=== PATIENT | female | born 1970 | race African-American/Black ===

== ENCOUNTER 2020-05-19 07:54 | Emergency (ER) | payer BC, OTHER ==
[2020-05-19] MEDS ORDERED: DIAZEPAM 10 MG/2 ML INJ SYRINGE ONE (09:16)
[2020-05-19] MEDS ORDERED: MORPHINE 4 MG/ML SYR ONE (09:16)
[2020-05-19] MEDS ORDERED: ONDANSETRON 4 MG (ODT) TAB ONE (09:17)
--- NOTE | 2020-05-19 09:40 | RAD REPORT ---
EXAM DESCRIPTION: CT - Spine Lumbar Wo Con - 05/19/2020 9:19 am CLINICAL HISTORY: back pain COMPARISON: CT lumbar spine study November 2017 TECHNIQUE: Thin section axial imaging of the lumbar spine was performed. Sagittal and coronal recon struction images were generated and reviewed. All CT scans are performed using dose optimization technique as appropriate and may include automated exposure control or mA/KV adjustment according to patient size. FINDINGS: The T12 - S2 vertebrae are normal in height and alignment. No fracture or acute vertebral body finding. The S3-coccygeal segments are not within the field of view of this CT lumbar spine stud y. The imaged portions of the sacral ala show no fracture or acute findings. No acute SI joint abnorm ality. No paraspinal soft tissue mass or hematoma. Central canal detail is inherently limited on CT imaging. The central canal is fairly well visualized with no herniation or significant disc bulge identifiable. Patient probably has mild broad-based dis c bulge at L5-S1. This is not significantly different from the prior study. No displacement or flatte joselyn of the thecal sac or S1 nerve roots. Mild facet joint degenerative changes are present. No pars interarticularis defects. IMPRESSION: No fracture or acute vertebral finding from T12-S2 levels. Mild facet joint degenerative change. No evidence for disc herniation or significant disc bulge.
--- NOTE | 2020-05-19 10:10 | EDPHYS ---
Physician Documentation [facility] Name: Lucina Zuñiga Age: 49 yrs Sex: Female : 1970 Arrival Date: 05/19/2020 Time: 08:03 Bed 15 Private MD: Soren Walters R ED Physician Peggy Monreal HPI: 05/19 08:54 This 49 yrs old Black Female presents to ER via Ambulatory with complaints of Back Pain.ma2 08:54 The patient presents with pain and decreased range of motion. The symptoms are located ma2 in the low back. Onset: The symptoms/episode began/occurred gradually, 1 week(s) ago. Associated signs and symptoms: Pertinent negatives: constipation, hematuria, nausea, numbness. The problem was sustained when lifting boxes. Severity of symptoms: At their worst the symptoms were mild, in the emergency department the symptoms are unchanged. The patient has experienced similar episodes in the past. Historical: - Allergies: 08:12 No Known Allergies; ss - PMHx: 08:12 Arthritis; ss - PSHx: 08:12 ; Hysterectomy; right knee mensicus removal; ss - Immunization history:: Adult Immunizations up to date. - Social history:: Smoking status: Patient denies any tobacco usage or history of. - Family history:: not pertinent. ROS: 08:54 Constitutional: Negative for fever, chills, and weight loss. ma2 08:54 All other systems are negative. Exam: 08:54 Constitutional: This is a well developed, well nourished patient who is awake, alert, ma2 and in no acute distress. Chest/axilla: Normal chest wall appearance and motion. Nontender with no deformity. No lesions are appreciated. Cardiovascular: Regular rate and rhythm with a normal S1 and S2. No gallops, murmurs, or rubs. Normal PMI, no JVD. No pulse deficits. Respiratory: Lungs have equal breath sounds bilaterally, clear to auscultation and percussion. No rales, rhonchi or wheezes noted. No increased work of breathing, no retractions or nasal flaring. Abdomen/GI: Soft, non-tender, with normal bowel sounds. No distension or tympany. No guarding or rebound. No evidence of tenderness throughout. Back: No spinal tenderness. No costovertebral tenderness. Full range of motion. Skin: Warm, dry with normal turgor. Normal color with no rashes, no lesions, and no evidence of cellulitis. MS/ Extremity: Pulses equal, no cyanosis. Neurovascular intact. Full, normal range of motion. Neuro: Awake and alert, GCS 15, oriented to person, place, time, and situation. Cranial nerves II-XII grossly intact. Motor strength 5/5 in all extremities. Sensory grossly intact. Cerebellar exam normal. Normal gait. Vital Signs: 08:12 BP 126 / 77; Pulse 81; Resp 16; Temp 98.9(TE); Pulse Ox 100% on R/A; Weight 70.31 kg; ss Height 5 ft. 4 in. (162.56 cm); Pain 8/10; 08:12 Body Mass Index 26.61 (70.31 kg, 162.56 cm) ss MDM: 08:42 Patient medically screened. [facility] 08:54 Differential diagnosis: Fracture Scoliosis sprain, vertebral fracture. [facility] 10:10 Data reviewed: vital signs, nurses notes. Counseling: I had a detailed discussion with ma2 the patient and/or guardian regarding: the historical points, exam findings, and any diagnostic results supporting the discharge/admit diagnosis, the presence of at least one elevated blood pressure reading (>120/80) during this emergency department visit, the need for outpatient follow up. Response to treatment: the patient's symptoms have markedly improved after treatment. 05/19 08:53 Order name: CT Lumbar Spine Wo Con; Complete Time: 10:09 [facility] Administered Medications: 09:08 Drug: Ondansetron (Zofran) 4 mg Route: PO; em 10:29 Follow up: Response: No adverse reaction em 09:11 Drug: morphine 4 mg Route: IM; Site: left gluteus; em 10:29 Follow up: Response: No adverse reaction; Marked relief of symptoms; RASS: Alert and em Calm (0) 09:13 Drug: Valium 10 mg Route: IM; Site: right gluteus; em 10:29 Follow up: Response: No adverse reaction; Marked relief of symptoms; Pain is decreased em Disposition: 05/19/20 10:10 Discharged to Home. Impression: Low back pain. - Condition is Stable. - Discharge Instructions: Back Pain, Adult. - Prescriptions for Valium 5 mg Oral Tablet - take 1 tablet by ORAL route every 8 hours As needed; 20 tablet. Cyclobenzaprine 10 mg Oral Tablet - take 1 tablet by ORAL route every 8 hours As needed; 30 tablet. Diclofenac Sodium 75 mg Oral Tablet Sustained Release - take 1 tablet by ORAL route 2 times per day; 30 tablet. - Medication Reconciliation Form, Thank You Letter, Antibiotic Education, Prescription Opioid Use form. - Follow up: Private Physician; When: Tomorrow; Reason: Continuance of care. Signatures: Dispatcher [employer] Giorgi Brar RN RN Mireille Medeiros RN RN Peggy Monreal MD MD ma2 Corrections: (The following items were deleted from the chart) 10:44 10:10 05/19/2020 10:10 Discharged to Home. Impression: Low back pain. Condition is em Stable. Prescriptions for Valium 5 mg Oral Tablet - take 1 tablet by ORAL route every 8 hours As needed; 20 tablet, Cyclobenzaprine 10 mg Oral Tablet - take 1 tablet by ORAL route every 8 hours As needed; 30 tablet, Diclofenac Sodium 75 mg Oral Tablet Sustained Release - take 1 tablet by ORAL route 2 times per day; 30 tablet. and Forms are Medication Reconciliation Form, Thank You Letter, Antibiotic Education, Prescription Opioid Use. Follow up: Private Physician; When: Tomorrow; Reason: Continuance of care. ma2
--- NOTE | 2020-05-19 10:10 | ER ---
Nurse's Notes [facility] Name: Lucina Zuñiga Age: 49 yrs Sex: Female : 1970 Arrival Date: 05/19/2020 Time: 08:03 Bed 15 Private MD: Soren Walters R Diagnosis: Low back pain Presentation: 05/19 08:10 Chief complaint: Patient states: I lifted a basket 2 weeks ago, but I fell backwards ss over a blow up mattress Thursday, and my back hurts so much worse. Pt c/o low back pain that radiates around to bilateral flank area. Coronavirus screen: Client denies travel out of the [place] in the last 14 days. Ebola Screen: Patient denies exposure to infectious person. Patient denies travel to an Ebola-affected area in the 21 days before illness onset. Initial Sepsis Screen: Does the patient meet any 2 criteria? No. Patient's initial sepsis screen is negative. Does the patient have a suspected source of infection? No. Patient's initial sepsis screen is negative. Risk Assessment: Do you want to hurt yourself or someone else? Patient reports no desire to harm self or others. Onset of symptoms was May 05, 2020. 08:10 Method Of Arrival: Ambulatory ss 08:10 Method Of Arrival: Ambulatory ss 08:10 Acuity: ABEL 3 ss Historical: - Allergies: 08:12 No Known Allergies; ss - PMHx: 08:12 Arthritis; ss - PSHx: 08:12 ; Hysterectomy; right knee mensicus removal; ss - Immunization history:: Adult Immunizations up to date. - Social history:: Smoking status: Patient denies any tobacco usage or history of. - Family history:: not pertinent. Screenin:10 Abuse screen: Denies threats or abuse. Nutritional screening: No deficits noted. em Tuberculosis screening: No symptoms or risk factors identified. Fall Risk None identified. Assessment: 09:00 General: Appears in no apparent distress. uncomfortable, Behavior is calm, cooperative. em Pain: Complains of pain in left low back and right low back Pain currently is 8 out of 10 on a pain scale. Quality of pain is described as radiating. Neuro: Level of Consciousness is awake, alert, obeys commands, Oriented to person, place, time, situation, Appropriate for age. Cardiovascular: Capillary refill < 3 seconds Patient's skin is warm and dry. Respiratory: Airway is patent Respiratory effort is even, unlabored, Respiratory pattern is regular, symmetrical. GI: Patient currently denies nausea, vomiting. Derm: Skin is intact, is healthy with good turgor, Skin is pink, warm \T\ dry. Musculoskeletal: Capillary refill < 3 seconds, Range of motion: intact in all extremities. 10:12 Reassessment: Patient appears in no apparent distress at this time. Patient and/or em family updated on plan of care and expected duration. Pain level reassessed. Patient is alert, oriented x 3, equal unlabored respirations, skin warm/dry/pink. Patient states feeling better. Patient states symptoms have improved. Vital Signs: 08:12 BP 126 / 77; Pulse 81; Resp 16; Temp 98.9(TE); Pulse Ox 100% on R/A; Weight 70.31 kg; ss Height 5 ft. 4 in. (162.56 cm); Pain 8/10; 08:12 Body Mass Index 26.61 (70.31 kg, 162.56 cm) ED Course: 08:03 Patient arrived in ED. mr 08:04 Soren Walters MD is Private Physician. mr 08:12 Triage completed. ss 08:12 Arm band placed on right wrist. ss 08:41 Peggy Monreal MD is Attending Physician. ma2 09:00 Patient has correct armband on for positive identification. Adult w/ patient. em 09:01 Giorgi Obrien, RN is Primary Nurse. em 09:19 CT Lumbar Spine Wo Con In Process Unspecified. EDMS 09:20 CT completed. Patient tolerated procedure well. Patient moved back from CT. bq 10:29 No provider procedures requiring assistance completed. Patient did not have IV access em during this emergency room visit. Administered Medications: 09:08 Drug: Ondansetron (Zofran) 4 mg Route: PO; em 10:29 Follow up: Response: No adverse reaction em 09:11 Drug: morphine 4 mg Route: IM; Site: left gluteus; em 10:29 Follow up: Response: No adverse reaction; Marked relief of symptoms; RASS: Alert and em Calm (0) 09:13 Drug: Valium 10 mg Route: IM; Site: right gluteus; em 10:29 Follow up: Response: No adverse reaction; Marked relief of symptoms; Pain is decreased em Outcome: 10:10 Discharge ordered by MD. ruiz 10:44 Patient left the ED. em Signatures: Dispatcher [employer] Ember Marie mr JjBrielle Edgar, RN RN em Smirch, Shelby, RN RN ss Alzahri, Mohammad, MD MD ma2
[2020-05-22 22:31] VITALS: BP 126/77; TEMP 98.9; O2SAT 100
== END 2020-05-19 10:44 | disposition home or self-care (01) ==
LOC: ER 07:54
DX: M54.5 Low back pain (principal)
CPT/HCPCS: 72131; 96372; 99284; J3360

== ENCOUNTER 2021-04-29 07:24 | Emergency (ER) | payer BC ==
--- OUTSIDE RECORDS SUMMARY | 2021-04-29 07:27 | XMS REPORT | Continuity of Care Document ---
:1970 Author Organization [facility] t Address [address] [place] [address] Care Team Providers Name Role Phone Martinez DO Attending Clinician Problems This patient has no known problems. Allergies, Adverse Reactions, Alerts This patient has no known allergies or adverse reactions. Medications This patient has no known medications. Procedures This patient has no known procedures. Encounters Start End Encounter Admission Attending Care Care Encounter Source Date/Time Date/Time Type Type Clinicians Facility Department ID 2020-10-26 2020-10-26 [facility] [id number] 09:40:00 12:30:00 Scar Fischer [id number] [place] [id number] [place] [id number] 2020-10-13 2020-10-13 [facility] [id number] 09:01:00 09:29:00 Scar Fischer [id number] [place] [id number] [place] [id number] Results This patient has no known results.
--- NOTE | 2021-04-29 08:39 | RAD REPORT ---
EXAM DESCRIPTION: CT - Abdomen Pelvis Wo Contrast - 04/29/2021 8:16 am CLINICAL HISTORY: Abdominal pain COMPARISON: 2012 TECHNIQUE: Computed axial tomography of the abdomen and pelvis was obtained. IV and oral contrast we re not requested. All CT scans are performed using dose optimization technique as appropriate and may include automated exposure control or mA/KV adjustment according to patient size. FINDINGS: The evaluation of solid organs, vessels and bowel is limited secondary to the lack of con trast administration. The most superior slice demonstrates a 9 millimeter ground-glass opacity within the right lower lobe. The liver, spleen, pancreas, adrenals and kidneys appear grossly normal. The appendix is normal. There is no evidence of diverticulitis. Mild rectal wall thickening. Apparent mild thickening of the wall of the transverse colon Hysterectomy. Small umbilical hernia contains fat IMPRESSION: Mild rectal wall thickening may be secondary to incomplete distention, small mass or inf lammation Apparent mild thickening of the wall of the transverse colon may simply represent incomplete distenti on. A mild colitis can also result in this appearance Mild right lower lobe alveolitis .
--- NOTE | 2021-04-29 08:44 | RAD REPORT ---
EXAM DESCRIPTION: Connie Single View04/29/2021 8:22 am CLINICAL HISTORY: Abdominal pain COMPARISON: 2009 FINDINGS: The lungs appear clear of acute infiltrate. The heart is normal size IMPRESSION: No acute abnormalities displayed
[2021-04-29 08:57] LABS: Urine Blood 1+ (Negative); Urine Glucose Negative (Negative); Urine Protein 2+ (Negative); Urine pH 8.5 (5.0-7.0)
[2021-04-29] MEDS ORDERED: ONDANSETRON 4 MG/2 ML VIAL ONE (09:08)
[2021-04-29] MEDS ORDERED: NA CHLORIDE 0.9% 1,000 ML ONE (09:09)
[2021-04-29 09:11] LABS: Basophils % 0.3 % (0-1.3); Hematocrit 40.9 % (36.0-45.0); MPV 9.1 fL (7.6-11.3); RBC Red Blood Cell Count 5.24 M/uL (3.86-4.86)
[2021-04-29 09:48] LABS: Urine Bacteria 20-50 /HPF (<20); Urine RBC <5 /HPF (NONE SEEN)
--- NOTE | 2021-04-29 11:06 | EDPHYS ---
Physician Documentation [facility] Name: Lucina Zuñiga Age: 50 yrs Sex: Female : 1970 Arrival Date: 04/29/2021 Time: 07:27 Bed 19 Private MD: ED Physician Clayton Izquierdo HPI: 04/29 07:56 This 50 yrs old Black Female presents to ER via Unassigned with complaints of Nausea, rn diarrhea. 07:56 The patient presents to the emergency department with nausea, vomiting, diarrhea. rn Onset: The symptoms/episode began/occurred yesterday. Possible causes: unknown. The symptoms are aggravated by nothing. The symptoms are alleviated by nothing. Associated signs and symptoms: Pertinent positives: diarrhea, nausea, vomiting, Pertinent negatives: fever. Severity of symptoms: At their worst the symptoms were moderate in the emergency department the symptoms are unchanged. The patient has not experienced similar symptoms in the past. The patient has been recently seen by a physician:. Patient states seen in outside ER yesterday, reports seen for urine infection symptoms yesterday, sent home with Keflex and Pyridium. Last night began with vomiting and diarrhea. Denies abdominal pain. Denies fever. Does report runny nose and dry cough.. Historical: - Allergies: 08:14 No Known Allergies; iw - PMHx: 08:14 Arthritis; iw - Immunization history:: Client reports having NOT received the Covid vaccine. - Family history:: not pertinent. - Social history:: Smoking status: unknown. - Hospitalizations: : No recent hospitalization is reported. ROS: 07:56 Constitutional: Negative for fever, chills, and weight loss, Eyes: Negative for injury, rn pain, redness, and discharge, Neck: Negative for injury, pain, and swelling, Cardiovascular: Negative for chest pain, palpitations, and edema, Respiratory: Negative for shortness of breath, wheezing, and pleuritic chest pain, Abdomen/GI: Negative for abdominal pain, and constipation, Back: Negative for injury and pain, : Negative for injury, bleeding, discharge, and swelling, MS/Extremity: Negative for injury and deformity, Skin: Negative for injury, rash, and discoloration, Neuro: Negative for headache, numbness, tingling, and seizure. 07:56 All other systems are negative. Exam: 07:56 Constitutional: This is a well developed, well nourished patient who is awake, alert, rn and in no acute distress. Ambulatory to room without assistance or difficulty. Head/Face: Normocephalic, atraumatic. Eyes: Periorbital areas with no swelling, redness, or edema. ENT: Dry mucous membranes, no stridor Cardiovascular: Regular rate and rhythm. No pulse deficits. Respiratory: Mild tachypnea, speaks full sentences, no retractions Abdomen/GI: Soft, non-tender Back: No spinal tenderness. No costovertebral tenderness. Full range of motion. Skin: Warm, dry MS/ Extremity: Pulses equal, no cyanosis. Neurovascular intact. Full, normal range of motion. Equal circumference. Neuro: Awake and alert, GCS 15, oriented to person, place, time, and situation. Cranial nerves II-XII grossly intact. Motor strength 5/5 in all extremities. Sensory grossly intact. Cerebellar exam normal. Normal gait. 09:14 ECG was reviewed by the Attending Physician. rn Vital Signs: 08:04 BP 106 / 58; Pulse 66; Resp 22 S; Temp 98.6; Pulse Ox 99% on R/A; iw 10:02 BP 125 / 85; Pulse 65; Resp 22; Pulse Ox 100% ; vg1 11:00 BP 115 / 72; Pulse 62; Resp 20; Pulse Ox 100% ; vg1 MDM: 07:28 Patient medically screened. rn 08:33 Differential diagnosis: Nonspecific abd pain, gastritis, pancreatitis, appendicitis, rn diverticulitis, viral gastroenteritis, gastroenteritis, UTI, pyelonephritis, secondary viral infection, COVID. Data interpreted: environmental monitoring specialist: rate is 68 beats/min, rhythm is normal sinus rhythm, regular, with no ectopy, Interpretation: normal rate, normal rhythm, Pulse oximetry: on room air is 99 %. Interpretation: normal. 11:05 Data reviewed: vital signs, nurses notes, lab test result(s), EKG, radiologic studies, rn CT scan, plain films, and as a result, I will discharge patient. Test interpretation: by ED physician or midlevel provider: ECG, plain radiologic studies, X-ray without acute infiltrate or pneumonia.. Counseling: I had a detailed discussion with the patient and/or guardian regarding: the historical points, exam findings, and any diagnostic results supporting the discharge/admit diagnosis, lab results, radiology results, the need for outpatient follow up, to return to the emergency department if symptoms worsen or persist or if there are any questions or concerns that arise at home. Response to treatment: the patient's symptoms have mildly improved after treatment, and as a result, I will discharge patient. Special discussion: I discussed with the patient/guardian in detail that at this point there is no indication for admission to the hospital. It is understood, however, that if the symptoms persist or worsen the patient needs to return immediately for re-evaluation. ED course: Patient with both Covid and urine infection. Rocephin given here IV. Already on Keflex. In terms of Covid infection chest x-ray is negative and no oxygen requirement. Will DC home with PCP follow-up and return precautions.. 04/29 07:56 Order name: Basic Metabolic Panel rn 04/29 07:56 Order name: CBC with Diff rn 04/29 07:56 Order name: Hepatic Function rn 04/29 07:56 Order name: Lipase rn 04/29 07:56 Order name: Urine Culture rn 04/29 07:56 Order name: Urine Microscopic Only; Complete Time: 10:11 rn 04/29 07:56 Order name: Flu; Complete Time: 09:11 rn 04/29 07:56 Order name: Blood Culture Adult (2) rn 04/29 07:56 Order name: Procalcitonin; Complete Time: 11:04 04/29 07:56 Order name: Basic Metabolic Panel EDNJ 04/29 07:56 Order name: CBC with Automated Diff; Complete Time: 09:39 EDNJ 04/29 07:56 Order name: Liver (Hepatic) Function EDNJ 04/29 08:57 Order name: Urine Dipstick-Ancillary; Complete Time: 09:11 EDNJ 04/29 07:56 Order name: IV Saline Lock; Complete Time: 09:00 rn 04/29 07:56 Order name: Labs collected and sent; Complete Time: 09:00 rn 04/29 07:56 Order name: Urine Dipstick-Ancillary (obtain specimen); Complete Time: 08:59 rn 04/29 07:56 Order name: XRAY Chest (1 view); Complete Time: 08:46 rn 04/29 08:00 Order name: CT Abd/Pelvis - Without Contrast; Complete Time: 08:40 rn 04/29 08:40 Interpretation: No acute disease except: Nonspecific large intestine findings. rn 04/29 08:25 Order name: Cardiac monitoring; Complete Time: 09:01 rn 04/29 08:25 Order name: O2 Sat Monitoring; Complete Time: 09: rn 04/29 08:25 Order name: EKG; Complete Time: 08:26 rn 04/29 08:25 Order name: EKG - Nurse/Tech; Complete Time: 09:01 rn 04/29 09:06 Order name: Urine --Ancillary (enter results) bd 04/29 09:53 Order name: SARS-COV-2 RT PCR; Complete Time: 10:11 EDMS EC:14 Rate is 63 beats/min. Rhythm is regular. QRS [place] is Normal. MA interval is normal. QRS rn interval is normal. QT interval is normal. No Q waves. T waves are Normal. No ST changes noted. Clinical impression: Normal ECG. Interpreted by me. Reviewed by me. Administered Medications: 08:50 Drug: Zofran (Ondansetron) 4 mg Route: IVP; Site: left antecubital; iw 11:04 Follow up: Response: No adverse reaction vg1 09:55 Drug: NS 0.9% 1000 ml Route: IV; Rate: 1000 ml; Site: left jugular; vg1 11:04 Follow up: Response: No adverse reaction; IV Status: Completed infusion; IV Intake: vg1 1000ml 09:55 Drug: NS 0.9% 500 ml Route: IV; Rate: bolus; Site: left jugular; vg1 10:56 Follow up: IV Status: Completed infusion; IV Intake: 500ml vg1 10:56 Drug: Rocephin (cefTRIAXone) 1 grams Route: IV; Rate: calculated rate; Site: left vg1 jugular; 11:44 Follow up: IV Status: Completed infusion; IV Intake: 10ml vg1 Disposition Summary: 04/29/21 11:06 Discharge Ordered Location: Home rn Problem: new rn Symptoms: have improved rn Condition: Stable rn Diagnosis - SARS-associated coronavirus as the cause of diseases classified elsewhere rn - UTI/ Urinary tract infection, site not specified rn Followup: rn - With: Private Physician - When: As needed - Reason: Recheck today's complaints, Re-evaluation by your physician Discharge Instructions: - Discharge Summary Sheet rn - Urinary Tract Infection, Adult rn - COVID-19 rn - Things to Know about the COVID-19 Pandemic - [facility] rn - 10 Things You Can Do to Manage Your COVID-19 Symptoms at Home - CDC rn Forms: - Medication Reconciliation Form rn - Thank You Letter rn - Antibiotic journeyman glazier - Prescription Opioid Use rn Prescriptions: - ondansetron 4 mg Oral tablet,disintegrating - take 1 tablet by ORAL route every 8 hours As needed; 20 tablet; Refills: 0, rn Product Selection Permitted Signatures: Dispatcher [employer] Coretta Velázquez RN RN iw Nieto, Roman, MD MD rn Garcia, Victoria RN RN vg1 Corrections: (The following items were deleted from the chart) 08:27 07:56 CORONAVIRUS+MR.LAB.BRZ ordered. EDNJ EDMS
--- NOTE | 2021-04-29 11:06 | ER ---
Nurse's Notes [facility] Name: Lucina Zuñiga Age: 50 yrs Sex: Female : 1970 Arrival Date: 04/29/2021 Time: 07:27 Bed 19 Private MD: Diagnosis: SARS-associated coronavirus as the cause of diseases classified elsewhere;UTI/ Urinary tract infection, site not specified Presentation: 04/29 08:04 Chief complaint: Patient states: nausea, vomiting, diarrhea, SOB, no fever. Coronavirus iw screen: Client presents with at least one sign or symptom that may indicate coronavirus-19. Ebola Screen: Patient negative for fever greater than or equal to 101.5 degrees Fahrenheit, and additional compatible Ebola Virus Disease symptoms Patient denies exposure to infectious person. Patient denies travel to an Ebola-affected area in the 21 days before illness onset. No symptoms or risks identified at this time. Initial Sepsis Screen: Does the patient meet any 2 criteria? No. Patient's initial sepsis screen is negative. Does the patient have a suspected source of infection? No. Patient's initial sepsis screen is negative. Risk Assessment: Do you want to hurt yourself or someone else? Patient reports no desire to harm self or others. Onset of symptoms was April 29, 2021. 08:04 Method Of Arrival: Ambulatory iw 08:04 Acuity: ABEL 3 iw Historical: - Allergies: 08:14 No Known Allergies; iw - PMHx: 08:14 Arthritis; iw - Immunization history:: Client reports having NOT received the Covid vaccine. - Family history:: not pertinent. - Social history:: Smoking status: unknown. - Hospitalizations: : No recent hospitalization is reported. Screenin:41 Abuse screen: Denies threats or abuse. Denies injuries from another. Nutritional iw screening: No deficits noted. Tuberculosis screening: No symptoms or risk factors identified. Fall Risk IV access (20 points). Assessment: 08:40 General: Appears in no apparent distress. Behavior is calm, cooperative. Pain: Denies iw pain. Neuro: Level of Consciousness is awake, alert, obeys commands, Oriented to person, place, time. Cardiovascular: Reports shortness of breath, Denies chest pain. Respiratory: Reports shortness of breath Airway is patent Respiratory effort is even, labored, Respiratory pattern is regular. GI: Abdomen is flat, non-distended, Reports diarrhea, nausea, vomiting. Derm: Skin is intact, is healthy with good turgor. Musculoskeletal: Range of motion: intact in all extremities. 09:18 Reassessment: IV infilitrated. iw 10:02 Reassessment: Patient appears in no apparent distress at this time. Patient and/or vg1 family updated on plan of care and expected duration. Pain level reassessed. Patient is alert, oriented x 3, equal unlabored respirations, skin warm/dry/pink. pt states back pain 03/30 and is still feeling nauseated. 11:04 Reassessment: Patient appears in no apparent distress at this time. Patient and/or vg1 family updated on plan of care and expected duration. Pain level reassessed. Patient is alert, oriented x 3, equal unlabored respirations, skin warm/dry/pink. 11:11 Reassessment: Pt up for d/c, currently waiting for IV fluids to complete. vg1 Vital Signs: 08:04 BP 106 / 58; Pulse 66; Resp 22 S; Temp 98.6; Pulse Ox 99% on R/A; iw 10:02 BP 125 / 85; Pulse 65; Resp 22; Pulse Ox 100% ; vg1 11:00 BP 115 / 72; Pulse 62; Resp 20; Pulse Ox 100% ; vg1 ED Course: 07:27 Patient arrived in ED. mr 07:28 Clayton Izquierdo MD is Attending Physician. rn 07:58 Coretta Hassan, LINDA is Primary Nurse. iw 08:05 Triage completed. iw 08:05 Arm band placed on. iw 08:16 CT Abd/Pelvis - Without Contrast In Process Unspecified. EDMS 08:20 XRAY Chest (1 view) In Process Unspecified. EDMS 08:21 Flu Sent. mh5 08:22 Patient has correct armband on for positive identification. Placed in gown. Bed in low mh5 position. Call light in reach. Side rails up X 1. Pillow given. Pulse ox on. NIBP on. 08:22 COVID swab sent to lab. Flu and/or RSV swab sent to lab. mh5 08:45 Initial lab(s) drawn, by me, sent to lab. First set of blood cultures drawn by me. mh5 08:45 First set of blood cultures drawn Second set of blood cultures drawn. mh5 08:58 Inserted saline lock: 22 gauge in left antecubital area, using aseptic technique. Blood 5 collected. 08:59 Liver (Hepatic) Function Sent. 5 08:59 Basic Metabolic Panel Sent. 5 08:59 CBC with Automated Diff Sent. mh5 08:59 Procalcitonin Sent. 5 08:59 Blood Culture Adult (2) Sent. 5 09:00 Urine Culture Sent. 5 09:00 Urine Microscopic Only Sent. 5 09:00 Basic Metabolic Panel Sent. 5 09:00 CBC with Diff Sent. 5 09:00 Hepatic Function Sent. 5 09:00 Lipase Sent. 5 09:00 EKG done, by ED staff, reviewed by Clayton Izquierdo MD. 5 09:53 Inserted saline lock: 20 gauge in left EJ, using aseptic technique. ,using aseptic vg1 technique. Completed by JAMIL Benites. 11:43 No provider procedures requiring assistance completed. IV discontinued, intact, vg1 bleeding controlled, No redness/swelling at site. Pressure dressing applied. Administered Medications: 08:50 Drug: Zofran (Ondansetron) 4 mg Route: IVP; Site: left antecubital; iw 11:04 Follow up: Response: No adverse reaction vg1 09:55 Drug: NS 0.9% 1000 ml Route: IV; Rate: 1000 ml; Site: left jugular; vg1 11:04 Follow up: Response: No adverse reaction; IV Status: Completed infusion; IV Intake: vg1 1000ml 09:55 Drug: NS 0.9% 500 ml Route: IV; Rate: bolus; Site: left jugular; vg1 10:56 Follow up: IV Status: Completed infusion; IV Intake: 500ml vg1 10:56 Drug: Rocephin (cefTRIAXone) 1 grams Route: IV; Rate: calculated rate; Site: left vg1 jugular; 11:44 Follow up: IV Status: Completed infusion; IV Intake: 10ml vg1 Intake: 10:56 IV: 500ml; Total: 500ml. vg1 11:04 IV: 1000ml; Total: 1500ml. vg1 11:44 IV: 10ml; Total: 1510ml. vg1 Outcome: 11:06 Discharge ordered by . rn 11:43 Discharged to home ambulatory. vg1 11:43 Condition: stable 11:43 Discharge instructions given to patient, Instructed on discharge instructions, follow up and referral plans. medication usage, Demonstrated understanding of instructions, follow-up care, medications, Prescriptions given X 1. 11:44 Patient left the ED. vg1 Signatures: Dispatcher [employer] EDMS Ember Rodriguez Coretta Stockton, RN Clayton Pepe MD MD rn Martinez, Maria Eliana Godinez RN RN vg1 Corrections: (The following items were deleted from the chart) 08:27 08:21 CORONAVIRUS+[email or web address].BRZ drawn and sent. [address]
[2021-04-29] MEDS ORDERED: CEFTRIAXONE/SWI 1gm 1 GM/10 ML SYR ONE (11:12)
[2021-04-29] MEDS ORDERED: NA CHLORIDE 0.9% 500 ML ONE (11:29)
[2021-04-29 12:01] VITALS: TEMP 98.6
[2021-04-29 12:07] LABS: ALT/SGPT 27 U/L (12-78); AST/SGOT 19 U/L (15-37); Albumin 4.1 g/dL (3.4-5.0); Alkaline Phosphatase 59 U/L (45-117); BUN Blood Urea Nitrogen 8 mg/dL (7-18); Bicarbonate 24 mmol/L (21-32); Bilirubin Direct 0.2 mg/dL (0-0.2); Bilirubin Total 0.6 mg/dL (0.2-1.0); Glucose Level 108 mg/dL (74-106); Lipase 77 U/L (73-393); Potassium 3.1 mmol/L (3.5-5.1); Protein, Total 8.1 g/dL (6.4-8.2); Sodium Level 143 mmol/L (136-145)
[2021-04-29 12:12] VITALS: BP 115/72; O2SAT 100
--- NOTE | 2021-04-30 07:58 | EKG ---
Test Date: 2021-04-29 Test Time: 09:09:32 Anodizing Line Operator: ALISE MEASUREMENT RESULTS: Intervals: Rate: 63 MD: 202 QRSD: 86 QT: 410 QTc: 419 [place]: P: 61 MD: 202 QRS: 43 T: 70 INTERPRETIVE STATEMENTS: Normal sinus rhythm Normal ECG Compared to ECG 08/24/2015 15:19:15 Sinus bradycardia no longer present Electronically Signed On 04-30-21 07:56:11 CDT by Clifford Izaguirre
== END 2021-04-29 11:44 | disposition home or self-care (01) ==
LOC: ER 07:24
DX: U07.1 COVID-19 (principal); N39.0 Urinary tract infection, site not specified
CPT/HCPCS: 96365; 96361; 93005; 87040 ×2; 87088; 85025; 87086; 80048; 36415; 81025; 80076; 83690; 84145; 87804 ×2; 74176; 71045; 96375; 99284; U0003; J0696; J7040; J7030; J2405; 81003; 81015

== ENCOUNTER 2023-03-10 16:13 | Emergency (ER) | payer BC ==
--- OUTSIDE RECORDS SUMMARY | 2023-03-10 16:20 | XMS REPORT | Continuity of Care Document ---
:1970 Author Organization [facility] t Address [address] [place] [address] Care Team Providers Name Role Phone Group, [facility] [phone] DARSHANA FAN Attending Clinician Unavailable LAB90 Attending Clinician Unavailable PEPE VYAS Attending Clinician Unavailable ELKIN ERNANDEZ Attending Clinician Unavailable Darshana Maldonado Attending Clinician Pepe Vyas MD Attending Clinician LAB47 Attending Clinician Unavailable Elkin Ernandez DO Attending Clinician Sayra Martinez DO Attending Clinician SAYRA MARTINEZ Attending Clinician Unavailable Payers Payer Name Policy Type Policy Number Effective Date Expiration Date S jeff BCBS 2 [id number] 2020 00:00:00 BCBS [facility] - [id number] 2014 00:00:00 OUT OF STATE Problems Condition Condition Condition Status Onset Resolution Last Treating Co mments Source Name Details Category Date Date Treatment Clinician Date Acute Acute Disease Active Melisa bilateral bilateral 5-26 Seyb old thoracic thoracic 00:00: - back pain back pain 00 Exte rna l Rheumatoid Rheumatoid Disease Active K elsey arthritis arthritis 4-28 Seyb old involving involving 00:00: - both hands both hands 00 Ex terna with with l positive positive rheumatoid rheumatoid factor factor Positive Positive Disease Active Kelse y CAROLANN CAROLANN - Seybold (antinucle (antinucle 00:00: - ar ar 00 Externa antibody) antibody) l Seasonal Seasonal Disease Active Kelse y allergies allergies 4-12 Seyb old 00:00: - 00 Externa l Allergies, Adverse Reactions, Alerts Allergy Allergy Status Severity Reaction(s) Onset Inactive Treating Comm ents Source Name Type Date Date Clinician SHRIMP DRUG Active ITCHING 2014-09 [facility] INGREDI 0-16 ity of 00:00: [address] Shrimp Propensi Active Itching 2014-09 Patient Melisa Extract ty to 0-16 states Seybold Allergy adverse 00:00: that - Skin reaction 00 iodine Externa Test s during CT l scans is fine. No reaction to iodine. Shrimp Propensi Active Itching 2014-09 Patient Melisa Extract ty to 0-16 states Seybold Allergy adverse 00:00: that Skin reaction 00 iodine Test s during CT scans is fine. No reaction to iodine. Iodine Propensi Active Other Melisa ty to 6-12 reaction( Seybold adverse 00:00: s): - reaction 00 Anaphylax Exter na s is l Social History Social Habit Start Date Stop Date Quantity Comments Source Gender identity 2021-11-20 Identifies as Melisa Garcia 04:35:56 female gender - External (finding) Sexual orientation 2021-11-20 Heterosexual Sydnie welch Seyblino 04:35:56 (finding) - External History SDOH Melisa dow Alcohol Std Drinks History SDMD Melisa Bibi dow Alcohol Binge Exposure to Not sure Melisa Castellonphyllis lawrence SARS-CoV-2 (event) History SDMD Melisa Bibi dow Alcohol Frequency Alcohol intake 2023-03-05 2023-03-05 Current drinker of Gonzalo luo Seyblino 00:00:00 00:00:00 alcohol (finding) - Exter nal Tobacco use and 2023-01-28 2023-01-28 Smokeless tobacco Gonzalo luo Seyblino exposure 00:00:00 00:00:00 non-user - External Alcohol Comment 2020-12-31 2020-12-31 christofer willingham 00:00:00 00:00:00 - External History of Social 2020-12-31 2020-12-31 Melisa Garcia function 00:00:00 00:00:00 - External Sex [birth year] At [birth year] Anamaria willingham 00:00:00 00:00:00 - External Smoking Status Start Date Stop Date Source Never smoked tobacco Melisa Castellon old - External Medications Ordered Filled Start Stop Current Ordering Indication Dosage Frequency Signature Comments Components Source Medication Medication Date Date Medication? Clinician (SIG) Name Name Multiple Yes [id number] 1{tbl} Take 1 Melisa Vitamins-Ir 6-15 tablet by Tamanna becker on (Daily 14:08: mouth - Vitamin 29 daily Externa Formula+Iro l n) oral Tablet Ascorbic Yes Take by Melisa Acid 6-15 mouth Seybold (Vitamin C 14:08: - CR) 1000 MG 29 Externa oral Tab CR l Folic Acid Yes 1mg Take 1 Kelse y 1 MG oral 6-15 tablet (1 Seybo ld tablet 14:08: mg total) - 29 by mouth Externa daily l Acetaminoph Yes [id number] 1{tbl} Q4H Take 1 Melisa en-Codeine 6-15 tablet by Cande huynh 300-30 MG 00:00: mouth - oral Tablet 00 every 4 Exter na hours as l needed for pain Duloxetine Yes [id number] 30mg Take 1 Melisa HCl 30 MG 6-15 [id number] capsule Seybo ld oral Cap DR 00:00: (30 mg - Particles 00 total) by Exter na mouth l daily predniSONE 2022- Yes [id number] 40mg Take 2 Melisa (DELTASONE) 6-15 06-21 tablets Cande old 20 MG oral 00:00: 04:59 (40 mg - tablet 00 :00 total) by Externa mouth l daily for 5 days Vitamin D, Yes [id number] 84091Q Take 1 Melisa Ergocalcife 5-15 capsule Seybo ld rol, 1.25 00:00: (50,000 - MG (74930 00 units Externa UT) oral total) by l Capsule mouth once a week Multiple Yes [id number] 1{tbl} Take 1 Melisa Vitamins-Ir 5-10 tablet by Tamanna becker on (Daily 12:39: mouth - Vitamin 42 daily Externa Formula+Iro l n) oral Tablet Ascorbic Yes Take by Melisa Acid 5-10 mouth Seybold (Vitamin C 12:39: - CR) 1000 MG 42 Externa oral Tab CR l Cholecalcif Yes Take by [facility] [place] 5-10 mouth Seybold (Vitamin 12:39: - D3) 1.25 MG 42 Externa (32911 UT) l oral Capsule Folic Acid Yes 1mg Take 1 Kelse y 1 MG oral 5-10 tablet (1 Seybo ld tablet 12:39: mg total) - 42 by mouth Externa daily l Duloxetine Yes [id number] 30mg Take 1 Melisa HCl 30 MG 5-10 [id number] capsule Seybo ld oral Cap DR 00:00: (30 mg - Particles 00 total) by Exter na mouth l daily predniSONE Yes [id number] One pill Melisa (DELTASONE) 5-10 twice Seybold 10 MG oral 00:00: daily for - tablet 00 5 days Externa then one l pill daily for 5 days Duloxetine 2022- No [id number] 30mg Take 1 Melisa HCl 30 MG 5-10 06-15 [id number] capsule Seyb old oral Cap DR 00:00: 00:00 (30 mg - Particles 00 :00 total) by Exter na mouth l daily predniSONE 2022- No [id number] One pill Melisa (DELTASONE) 5-10 -15 twice Seybol d 10 MG oral 00:00: 00:00 daily for - tablet 00 :00 5 days Externa then one l pill daily for 5 days Cyclobenzap Yes [id number] 5mg Q.[id number] Take 1 Melisa rine HCl 5 7-20 [id number] tablet (5 Seybold MG oral 00:00: 3D mg total) - Tablet 00 by mouth 3 Externa times l daily as needed for muscle spasms Celecoxib Yes [id number] 200mg Take 1 Melisa (CeleBREX) 7-20 capsule Seybol d 200 MG oral 00:00: (200 mg - Capsule 00 total) by Externa mouth 2 l times daily Cyclobenzap Yes [id number] 5mg Q.[id number] Take 1 Melisa rine HCl 5 7-20 [id number] tablet (5 Seybold MG oral 00:00: 3D mg total) - Tablet 00 by mouth 3 Externa times l daily as needed for muscle spasms Celecoxib Yes [id number] 200mg Take 1 Melisa (CeleBREX) 7-20 capsule Seybol d 200 MG oral 00:00: (200 mg - Capsule 00 total) by Externa mouth 2 l times daily Methotrexat Yes [id number] 6 TABLETS Melisa e 2.5 MG 6-21 [id number] BY MOUTH 1 Sey bold oral Tablet 00:00: TIME A - WEEK Externa l Methotrexat Yes [id number] 6 TABLETS Melisa e 2.5 MG 6-21 [id number] BY MOUTH 1 Sey bold oral Tablet 00:00: TIME WEEK Externa l Folic Acid Yes 1mg Take 1 mg Ke lsey 1 MG oral 5-26 by mouth Seybol d tablet 14:28: daily 36 Multiple Yes [id number] 1{tbl} Take 1 Melisa Vitamins-Ir 5-26 tablet by Sepapito bold on (Daily 13:54: mouth Vitamin 39 daily Formula+Iro n) oral Tablet Ascorbic Yes Take by Melisa Acid 5-26 mouth Seybold (Vitamin C 13:54: CR) 1000 MG 39 oral Tab CR Cholecalcif Yes Take by [facility]legos[facility] [place] 5-26 mouth Seybold (Vitamin 13:54: D3) 1.25 MG 39 (03111 UT) oral Capsule predniSONE Yes [id number] One pill Melisa (DELTASONE) 5-26 twice Seybold 10 MG oral 00:00: daily for tablet 00 5 days then one pill daily for 5 days Cyclobenzap Yes [id number] 10mg Q.5D Take 1 Melisa rine HCl 10 5-26 tablet (10 Se ybold MG oral 00:00: mg total) Tablet 00 by mouth as needed in the morning and 1 tablet (10 mg total) as needed in the evening for muscle spasms. predniSONE 2022- No [id number] One pill Melisa (DELTASONE) 02-13 05-10 twice Seybol d 10 MG oral 00:00: 00:00 daily for - tablet 00 :00 5 days Externa then one l pill daily for 5 days Maxwelton-3 Yes Melisa Fatty Acids 5-04 Seybold (Maxwelton-3 00:00: Fish Oil) 00 1200 MG oral Capsule Ferrous Yes Melisa Sulfate 325 5-04 Seybold (65 Fe) MG 00:00: oral Tablet 00 Maxwelton-3 Yes Melisa Fatty Acids 5-04 Seybold (Maxwelton-3 00:00: - Fish Oil) 00 Externa 1200 MG l oral Capsule Ferrous Yes Melisa Sulfate 325 5-04 Seybold (65 Fe) MG 00:00: - oral Tablet 00 Externa l Maxwelton-3 Yes Melisa Fatty Acids 5-04 Seybold (Maxwelton-3 00:00: - Fish Oil) 00 Externa 1200 MG l oral Capsule Ferrous Yes Melisa Sulfate 325 5-04 Seybold (65 Fe) MG 00:00: - oral Tablet 00 Externa l Multiple Yes [id number] 1{tbl} Take 1 Melisa Vitamins-Ir - tablet by Tamanna becker on (Daily 07:49: mouth Vitamin 56 daily Formula+Iro n) oral Tablet Ascorbic Yes Take by Melisa Acid 01-16 mouth Seybold (Vitamin C 07:49: CR) 1000 MG 56 oral Tab CR Cholecalcif Yes Take by [facility] galleg[facility] [place] - mouth Seybold (Vitamin 07:49: D3) 1.25 MG 56 (30024 UT) oral Capsule FLUTICASONE 2021- No [id number] 1{spray Use 1 Melisa PROPIONATE, 01-16 } spray in Tamanna becker NASAL, 50 07:49: 00:00 each MCG/ACT 38 :00 nostril nasal daily Suspension Cetirizine 2021- No [id number] 10mg Take 10 mg Melisa 10 MG oral 01-16 by mouth Seyb old Tablet 07:49: 00:00 daily 20 :00 Methotrexat 2021-0 Yes [id number] TAKE 3 K elsey e 2.5 MG 4-06 TABLETS BY Seybo ld oral Tablet 00:00: MOUTH 1 00 TIME A WEEK FOR 2 WEEKS THEN TAKE 6 TABLETS BY MOUTH 1 TIME A WEEK THEREAFTER Methotrexat 0 Yes [id number] TAKE 3 K elsey e 2.5 MG 4-06 TABLETS BY Seybo ld oral Tablet 00:00: MOUTH 1 00 TIME A WEEK FOR 2 WEEKS THEN TAKE 6 TABLETS BY MOUTH 1 TIME A WEEK THEREAFTER Methotrexat 0 Yes [id number] 3 tabs K elsey e 2.5 MG 3-16 once a Seybold oral Tablet 00:00: week x 2 00 weeks, then 6 tabs once a week after that methylPREDN Yes [id number] 1{francis} Take 1 francis Melisa ISolone 3-16 by mouth Seybold (Medrol) 4 00:00: See Admin MG oral 00 Instructio Tablet ns Use as Therapy directed. Pack methylPREDN 2021- No [id number] 1{francis} Take 1 francis Melisa ISolone 3-16 04-28 by mouth Seybold (Medrol) 4 00:00: 00:00 See Admin MG oral 00 :00 Instructio Tablet ns Use as Therapy directed. Pack FLUTICASONE Yes [id number] 1{spray Use 1 Melisa PROPIONATE, 3-08 } spray in Seyb old NASAL, 50 10:32: each MCG/ACT 01 nostril nasal daily Suspension Multiple Yes [id number] 1{tbl} Take 1 Melisa Vitamins-Ir 3-08 tablet by Tamanna becker on (Daily 10:32: mouth Vitamin 01 daily Formula+Iro n) oral Tablet Cetirizine Yes [id number] 10mg Take 10 mg Melisa 10 MG oral 3-08 by mouth Seybo ld Tablet 10:32: daily 01 Ascorbic Yes Take by Melisa Acid 3-08 mouth Seybold (Vitamin C 10:32: CR) 1000 MG 01 oral Tab CR Cholecalcif Yes Take by [facility] [place] 3-08 mouth Seybold (Vitamin 10:32: D3) 1.25 MG 01 (67401 UT) oral Capsule FLUTICASONE 2021-0 Yes [id number] 1{spray Use 1 Melisa PROPIONATE, 3-08 } spray in Seyb old NASAL, 50 10:32: each MCG/ACT 01 nostril nasal daily Suspension Multiple Yes [id number] 1{tbl} Take 1 Melisa Vitamins-Ir 3-08 tablet by Tamanna becker on (Daily 10:32: mouth Vitamin 01 daily Formula+Iro n) oral Tablet Cetirizine Yes [id number] 10mg Take 10 mg Melisa 10 MG oral 3-08 by mouth Seybo ld Tablet 10:32: daily 01 Ascorbic Yes Take by Melisa Acid 3-08 mouth Seybold (Vitamin C 10:32: CR) 1000 MG 01 oral Tab CR Cholecalcif Yes Take by [facility] [place] 3-08 mouth Seybold (Vitamin 10:32: D3) 1.25 MG 01 (48108 UT) oral Capsule methylPREDN Yes [id number] 1{francis} Take 1 francis Melisa ISolone 3-08 by mouth Seybold (Medrol) 4 00:00: See Admin MG oral 00 Instructio Tablet ns Use as Therapy directed. Pack methylPREDN 2021-0 2021- No [id number] 1{francis} Take 1 francis Melisa ISolone 3-08 03-16 by mouth Seybold (Medrol) 4 00:00: 00:00 See Admin MG oral 00 :00 Instructio Tablet ns Use as Therapy directed. Pack FLUTICASONE Yes [id number] 1{spray Use 1 Melisa PROPIONATE, 2-03 } spray in Seyb old NASAL, 08:03: each (Flonase) 43 nostril 50 MCG/ACT daily nasal Suspension Multiple 2021- Yes [id number] 1{tbl} Take 1 Melisa Vitamins-Ir 2-03 tablet by Tamanna becker on (Daily 08:03: mouth Vitamin 43 daily Formula+Iro n) oral Tablet Cetirizine Yes [id number] 10mg Take 10 mg Melisa (ZyrTEC 2-03 by mouth Seybold Allergy) 10 08:03: daily MG oral 43 Tablet Ascorbic Yes Take by Melisa Acid 2-03 mouth Seybold (Vitamin C 08:03: CR) 1000 MG 43 oral Tab CR Cholecalcif Yes Take by [facility] sey [place] 2-03 mouth Seybold (Vitamin 08:03: D3) 1.25 MG 43 (08016 UT) oral Capsule Cyclobenzap 0 Yes [id number] 5mg Q.[id number] Take 1 Melisa rine HCl 5 2-03 [id number] tablet (5 Seybold MG oral 00:00: 3D mg total) Tablet 00 by mouth 3 times daily as needed for muscle spasms Diclofenac 0 Yes [id number] 75mg Take 1 K elsey Sodium 75 2-03 tablet (75 Seyb old MG oral 00:00: mg total) Tablet 00 by mouth 2 Delayed times Response daily Cyclobenzap 0 Yes [id number] 5mg Q.[id number] Take 1 Melisa rine HCl 5 2-03 [id number] tablet (5 Seybold MG oral 00:00: 3D mg total) Tablet 00 by mouth 3 times daily as needed for muscle spasms Diclofenac 0 Yes [id number] 75mg Take 1 K elsey Sodium 75 2-03 tablet (75 Seyb old MG oral 00:00: mg total) Tablet 00 by mouth 2 Delayed times Response daily Cyclobenzap 0 Yes [id number] 5mg Q.[id number] Take 1 Melisa rine HCl 5 2-03 [id number] tablet (5 Seybold MG oral 00:00: 3D mg total) Tablet 00 by mouth 3 times daily as needed for muscle spasms Diclofenac 2021-0 Yes [id number] 75mg Take 1 K elsey Sodium 75 2-03 tablet (75 Seyb old MG oral 00:00: mg total) Tablet 00 by mouth 2 Delayed times Response daily Cyclobenzap 2021-0 2021- No [id number] 5mg Q.[id number] Take 1 Melisa rine HCl 5 2-03 - [id number] tablet (5 Seybold MG oral 00:00: 00:00 3D mg total) Tablet 00 :00 by mouth 3 times daily as needed for muscle spasms Diclofenac 2021-0 2021- No [id number] 75mg Take 1 Melisa Sodium 75 2-03 - tablet (75 Sey bold MG oral 00:00: 00:00 mg total) Tablet 00 :00 by mouth 2 Delayed times Response daily Magnesium 2-0 Yes Melisa 250 MG oral 1-28 Seybold Tablet 00:00: 00 Magnesium 2-0 Yes Melisa 250 MG oral 1-28 Seybold Tablet 00:00: 00 Magnesium 2-0 Yes Melisa 250 MG oral 1-28 Seybold Tablet 00:00: - 00 Externa l Magnesium 2-0 Yes Melisa 250 MG oral 1-28 Seybold Tablet 00:00: - 00 Externa l Phenazopyri 2020-0 Yes 200mg Take 200 K elsey dine HCl 8-08 mg by Seybold 200 MG oral 00:00: mouth 3 Tablet 00 times daily Phenazopyri 2020-0 2021- No 200mg Take 200 Melisa dine HCl 8-08 03-08 mg by Seybold 200 MG oral 00:00: 00:00 mouth 3 Tablet 00 :00 times daily Immunizations Ordered Immunization Filled Immunization Date Status Commen Source Name Name Influenza Virus 2022-07-26 Completed Melisa Se willingham Vaccine, Unspecified 00:00:00 - Ex ternal Formulation Influenza Virus 2022-07-26 Completed Melisa ybold Vaccine, Unspecified 00:00:00 - Ex ternal Formulation Tdap- (Boostrix, 2022-01-16 Completed Melisa samuel Adacel) 00:00:00 Tdap- (Boostrix, 2022-01-16 Completed Melisa samuel Adacel) 00:00:00 Tdap- (Boostrix, 2022-01-16 Completed Melisa samuel Adacel) 00:00:00 - External Tdap- (Boostrix, 2022-01-16 Completed Melisa samuel Adacel) 00:00:00 - External Covid-19 Vaccine 2021-06-15 Completed Melisa samuel ([employer]), Mrna-lnp, 00:00:00 Paddy Protein, Pf, 30mcg/0.3ml,IM Covid-19 Vaccine 2021-06-15 Completed Melisa samuel ([employer]), Mrna-lnp, 00:00:00 Paddy Protein, Pf, 30mcg/0.3ml,IM Covid-19 Vaccine 2021-06-15 Completed Melisa welchbold ([employer]), Mrna-lnp, 00:00:00 - Ext ernal Paddy Protein, Pf, 30mcg/0.3ml,IM Covid-19 Vaccine 2021-06-15 Completed Melisa Velasquez eybold ([employer]), Mrna-lnp, 00:00:00 - Ext ernal Paddy Protein, Pf, 30mcg/0.3ml,IM Covid-19 Vaccine 2021-06-15 Completed Melisa welchbold ([employer]), Mrna-lnp, 00:00:00 Paddy Protein, Pf, 30mcg/0.3ml,IM Covid-19 Vaccine 2021-06-15 Completed Melisa welchbold ([employer]), Mrna-lnp, 00:00:00 Paddy Protein, Pf, 30mcg/0.3ml,IM Covid-19 Vaccine 2021-06-15 Completed Melisa welchbold ([employer]), Mrna-lnp, 00:00:00 Paddy Protein, Pf, 30mcg/0.3ml,IM Vital Signs Vital Name Observation Time Observation Value Comments Source Systolic blood 2023-03-05 19:07:00 120 mm[Hg] Melisa Garcia - pressure External Diastolic blood 2023-03-05 19:07:00 76 mm[Hg] Andrés Garcia - pressure External Heart rate 2023-03-05 19:07:00 66 /min Melisa Eva lizzie - External Body temperature 2023-03-05 19:07:00 36.61 Ayana Sydnie Garcia - External Respiratory rate 2023-03-05 19:07:00 14 /min Sydnie Garcia - External Body height 2023-03-05 19:07:00 162.6 cm Melisa Eva lizzie - External Body weight 2023-03-05 19:07:00 77.565 kg Melisa Eva lizzie - External BMI 2023-03-05 19:07:00 29.35 kg/m2 Melisa samuel - External Oxygen saturation in 2023-03-05 19:07:00 99 /min Melisa Garcia - Arterial blood by External Pulse oximetry Systolic blood 2023-01-28 17:38:00 124 mm[Hg] Melisa Seybold - pressure External Diastolic blood 2023-01-28 17:38:00 68 mm[Hg] Kelse y Seybold - pressure External Heart rate 2023-01-28 17:38:00 87 /min Melisa S eybold - External Body temperature 2023-01-28 17:38:00 36.61 Ayana Sydnie ey Seybold - External Respiratory rate 2023-01-28 17:38:00 16 /min Sydnie ey Seybold - External Body height 2023-01-28 17:38:00 162.6 cm Melisa S eybold - External Body weight 2023-01-28 17:38:00 77.565 kg Melisa S eybold - External BMI 2023-01-28 17:38:00 29.35 kg/m2 Melisa S eybold - External Oxygen saturation in 2023-01-28 17:38:00 99 /min Melisa Seybold - Arterial blood by External Pulse oximetry Systolic blood 2022-02-13 18:53:00 119 mm[Hg] Melisa Seybold pressure Diastolic blood 2022-02-13 18:53:00 63 mm[Hg] Kelse y Seybold pressure Heart rate 2022-02-13 18:53:00 63 /min Melisa S eybold Body temperature 2022-02-13 18:53:00 36.44 Ayana Sydnie ey Seybold Respiratory rate 2022-02-13 18:53:00 15 /min Sydnie ey Seybold Body height 2022-02-13 18:53:00 162.6 cm Melisa S eybold Body weight 2022-02-13 18:53:00 75.479 kg Melisa S eybold BMI 2022-02-13 18:53:00 28.56 kg/m2 Melisa S eybold Oxygen saturation in 2022-02-13 18:53:00 100 /min Melisa Seybold Arterial blood by Pulse oximetry Systolic blood 2022-01-16 12:44:00 114 mm[Hg] Melisa Seybold pressure Diastolic blood 2022-01-16 12:44:00 66 mm[Hg] Kelse y Seybold pressure Heart rate 2022-01-16 12:44:00 78 /min Melisa S eybold Body temperature 2022-01-16 12:44:00 36.39 Ayana Sydnie ey Seybold Respiratory rate 2022-01-16 12:44:00 16 /min Sydnie ey Seybold Body height 2022-01-16 12:44:00 162.6 cm Melisa S eybold Body weight 2022-01-16 12:44:00 75.751 kg Melisa S eybold BMI 2022-01-16 12:44:00 28.67 kg/m2 Melisa S eybold Systolic blood 2021-11-26 16:35:00 132 mm[Hg] Melisa Seybold pressure Diastolic blood 2021-11-26 16:35:00 74 mm[Hg] Kelse y Seybold pressure Heart rate 2021-11-26 16:35:00 83 /min Melisa S eybold Respiratory rate 2021-11-26 16:35:00 16 /min Sydnie ey Seybold Body height 2021-11-26 16:35:00 162.6 cm Melisa S eybold Body weight 2021-11-26 16:35:00 74.844 kg Melisa S eybold BMI 2021-11-26 16:35:00 28.32 kg/m2 Melisa S eybold Systolic blood 2021-10-24 13:57:00 120 mm[Hg] Melisa Seybold pressure Diastolic blood 2021-10-24 13:57:00 78 mm[Hg] Kelse y Seybold pressure Heart rate 2021-10-24 13:57:00 83 /min Melisa Velasquez eybold Body temperature 2021-10-24 13:57:00 35.67 Ayana Sydnie ey Seybold Respiratory rate 2021-10-24 13:57:00 14 /min Sydnie ey Seybold Body height 2021-10-24 13:57:00 162.6 cm Melisa S eybold Body weight 2021-10-24 13:57:00 72.576 kg Melisa S eybold BMI 2021-10-24 13:57:00 27.46 kg/m2 Melisa Velasquez eybold Procedures This patient has no known procedures. Encounters Start End Encounter Admission Attending Care Care Encounter Source Date/Time Date/Time Type Type Clinicians Facility Department ID 2023-03-06 2023-03-06 Outpatient MELISA FAN MELISA [id number] Melisa 00:00:00 00:00:00 DARSHANA Seybol d 2023-03-05 2023-03-05 Outpatient LAB90 MELISA DAVIS [id number] Melisa 15:15:00 15:15:00 Seybol d 2023-03-05 2023-03-05 Outpatient MITA MELISA DAVIS [id number] Melisa 14:30:00 14:30:00 DARSHANA Seybol d 2023-03-03 2023-03-03 Outpatient YAKOV MELISA DAVIS [id number] Melisa 08:30:00 08:30:00 PEPE Seybo ld 2023-02-25 2023-02-25 Outpatient MITA MELISA DAVIS [id number] Melisa 14:30:00 14:30:00 ADRSHANA Seybol d 2023-02-02 2023-02-02 Outpatient MITA MELISA DAVIS [id number] Melisa 00:00:00 00:00:00 DARSHANA Seybol d 2023-01-29 2023-01-29 Outpatient LAB90 MELISA DAVIS [id number] Melisa 08:05:00 08:05:00 Seybol d 2023-01-28 2023-01-28 Outpatient MITA MELISA DAVIS [id number] Melisa 14:30:00 14:30:00 DARSHANA Seybol d 2023-01-28 2023-01-28 Outpatient MITA MELISA DAVIS [id number] Melisa 13:00:00 13:00:00 DARSHANA Seybol d 2023-01-12 2023-01-12 Outpatient PREZAS MELISA DAVIS [id number] Melisa 08:45:00 08:45:00 ELKIN Seybol d 2023-01-07 2023-01-07 Outpatient MITA MELISA DAVIS [id number] Melisa 08:00:00 08:00:00 DARSHANA Seybol d 2022-08-29 2022-08-29 Outpatient MITA MELISA DAVIS [id number] Melisa 00:00:00 00:00:00 DARSHANA Seybol d 2022-06-17 2022-06-17 Outpatient MELISA VYAS [id number] Melisa 13:30:00 13:30:00 PEPE Castellono ld 2022-04-09 2022-04-09 Office HectorLong loving [id number] Melisa 08:30:00 09:00:00 Visit Darshana Bazzi [id number] Se ybold [id number] 2022-03-11 2022-03-11 Office MACARIO Vyas [id number] Melisa 14:15:00 14:30:00 Visit Pepe Charly [id number] Seybold [id number] 2022-03-11 2022-03-11 Outpatient [facility] MELISA DAVIS [id number] Melisa 13:45:00 13:45:00 Seybol d 2022-03-05 2022-03-05 Outpatient MELISA DAVIS [id number] Melisa 13:30:00 13:30:00 Seybol d 2022-03-05 2022-03-05 Outpatient HECTORYanira MELISA DAVIS [id number] Melisa 00:00:00 00:00:00 DARSHANA Seybol d 2022-02-21 2022-02-21 Outpatient MELISA DAVIS [id number] Melisa 10:00:00 10:00:00 Seybol d 2022-02-13 2022-02-13 Office Long Ernandez [id number] Melisa 14:15:00 14:30:00 Visit Elkin Bazzi [id number] Se ybold [id number] 2022-02-04 2022-02-04 Outpatient MELISA DAVIS [id number] Melisa 10:00:00 10:00:00 Seybol d 2022-02-04 2022-02-04 Outpatient MELISA VYAS [id number] Melisa 08:30:00 08:30:00 PEPE Gallegosybo ld 2022-01-282022-01-28 Outpatient MELISA VYAS [id number] Melisa 08:45:00 08:45:00 PEPE mirzao victor m 2022-01-17 2022-01-17 Outpatient MELISA FAN [id number] Melisa 00:00:00 00:00:00 DARSHANA Seybol d 2022-01-16 2022-01-16 Outpatient LAB90 MELISA DAVIS [id number] Melisa 08:45:00 08:45:00 Seybol d 2022-01-16 2022-01-16 Office Long FAN [id number] Melisa 08:00:00 08:00:00 Visit DARSHANA Bazzi [id number] Se ybold [id number] 2021-12-04 2021-12-04 Telemedici ROS Vyas [id number] Melisa 08:30:00 08:30:00 ne Pepe SHEEHAN [id number] Seybold [id number] 2021-12-04 2021-12-04 Outpatient MELISA VYAS [id number] Melisa 08:00:00 08:00:00 PEPE mirzao victor m 2021-12-04 2021-12-04 Outpatient MELISA VYAS [id number] Melisa 00:00:00 00:00:00 PEPE Castellono victor m 2021-11-29 2021-11-29 Outpatient MELISA VYAS [id number] Melisa 00:00:00 00:00:00 PEPE aCstellono victor m 2021-11-27 2021-11-27 Outpatient MELISA VYAS [id number] Melisa 00:00:00 00:00:00 PEPE Castellono victor m 2021-11-27 2021-11-27 Outpatient MELISA VYAS [id number] Melisa 00:00:00 00:00:00 PEPE Castellono victor m 2021-11-26 2021-11-26 Outpatient LAB EMLISA DAVIS [id number] Melisa 11:45:00 11:45:00 Seybol d 2021-11-26 2021-11-26 Office MACARIO Vyas [id number] Melisa 11:00:00 11:30:00 Visit Pepe Parks [id number] Seybold [id number] 2021-11-21 2021-11-21 Outpatient MELISA FAN [id number] Melisa 08:00:00 08:00:00 DARSHANA Seybol d 2021-10-29 2021-10-29 Outpatient MELISA FAN [id number] Melisa 00:00:00 00:00:00 DARSHANA Seybol d 2021-10-29 2021-10-29 Outpatient MELISA FAN [id number] Melisa 00:00:00 00:00:00 DARSHANA Seybol d 2021-10-25 2021-10-25 Outpatient MELISA FAN [id number] Melisa 00:00:00 00:00:00 DARSHANA Seybol d 2021-10-25 2021-10-25 Outpatient MELISA FAN [id number] Melisa 00:00:00 00:00:00 DARSHANA Seybol d 2021-10-25 2021-10-25 Outpatient MELISA FAN [id number] Melisa 00:00:00 00:00:00 DARSHANA Seybol d 2021-10-24 2021-10-24 Outpatient LAB[facility] MELISA DAVIS [id number] Melisa 08:50:00 08:50:00 Seybol d 2021-10-24 2021-10-24 Office Long Fan [id number] Melisa 08:00:00 08:30:00 Visit Darshana Jluis [id number] Se ybold [id number] 2021-04-28 2021-04-28 Emergency X [facility] ERT [id number] Univers 10:32:00 10:32:00 [facility] 2020-10-262020-10-26 Emergency Martinez, [facility] [id number] 09:40:00 12:30:00 Sayra Fischer [id number] [place] [id number] [place] [id number] 2020-10-26 2020-10-26 Emergency X MARTINEZ, [facility] ERT [id number] Univers 09:40:00 09:40:00 SAYRA fields [facility] 2020-10-13 2020-10-13 [facility] [id number] 09:01:00 09:29:00 Sayra Fischer [id number] [place] [id number] [place] [id number] 2020-10-13 2020-10-13 Emergency X MARTINEZ, [facility] ERT [id number] Univers 09:01:00 09:01:00 SAYRA [facility] Results This patient has no known results.
--- NOTE | 2023-03-10 16:30 | EDPHYS ---
Physician Documentation [facility] Name: Lucina Zuñiga Age: 52 yrs Sex: Female : 1970 Arrival Date: 03/10/2023 Time: 16:13 Bed IW5 Private MD: ED Physician Steffen Valdovinos HPI: 03/10 16:50 This 52 yrs old Black Female presents to ER via Ambulatory with complaints of Foot kb Infection. 16:50 the patient presents with a swollen area of the Left third toenail. Description: kb draining, erythematous, swollen. Onset: The symptoms/episode began/occurred 1 week(s) ago. Possible cause(s): unknown. Associated signs and symptoms: Pertinent positives: drainage, erythema, swelling. Modifying factors: the symptoms are alleviated by nothing, the symptoms are aggravated by pressure, squeezing the lesion and expressing the contents, touching. Severity of symptoms: At their worst the symptoms were moderate, in the emergency department the symptoms are unchanged. The patient has not experienced similar symptoms in the past. The patient has been recently seen by a physician:. Pt reports she had redness and swelling to left foot and toes last week. Was seen at [facility] and had a workup completed, diagnosed with gout. States she followed up with PCP and was given pain medication and steroids for gout. Reports she woke up yesterday and the redness had gone away except for third toe on left foot. States it started draining today. Historical: - Allergies: 16:26 shrimp; iw - PMHx: 16:26 Arthritis; iw - PSHx: 16:26 section; hysterectomy; right meniscus/knee; iw - Social history:: Smoking status: . ROS: 16:29 Constitutional: Negative for fever, chills, and weight loss. kb 16:29 Skin: Positive for erythema, swelling, of the Left third toenail, drainage. 16:48 All other systems are negative. kb Exam: 16:49 Constitutional: This is a well developed, well nourished patient who is awake, alert, kb and in no acute distress. Head/Face: Normocephalic, atraumatic. ENT: Moist Mucous membranes Cardiovascular: Regular rate and rhythm with a normal S1 and S2. No gallops, murmurs, or rubs. No pulse deficits. Respiratory: Respirations even and unlabored. No increased work of breathing. Talking in full sentences MS/ Extremity: Pulses equal, no cyanosis. Neurovascular intact. Full, normal range of motion. Neuro: Awake and alert, GCS 15, oriented to person, place, time, and situation. Moves all extremities. Normal gait. 16:49 Skin: abscess, that is small, of the Left third toenail, with drainage, that is purulent. Vital Signs: 16:23 BP 132 / 85; Pulse 62; Resp 16; Temp 98.9; Pulse Ox 100% on R/A; iw MDM: 16:28 Patient medically screened. kb 16:49 Differential diagnosis: abscess, osteomyelitis, cellulitis, paronychia, gout. Data kb reviewed: vital signs, nurses notes. Counseling: I had a detailed discussion with the patient and/or guardian regarding: the historical points, exam findings, and any diagnostic results supporting the discharge/admit diagnosis, the need for outpatient follow up, a family practitioner, to return to the emergency department if symptoms worsen or persist or if there are any questions or concerns that arise at home. ED course: paronychia draining. Pt educated on soaking in warm water and antibiotic use. Administered Medications: No medications were administered Disposition Summary: 23 16:30 Discharge Ordered Location: Home kb Condition: Stable kb Diagnosis - Paronychia kb Followup: kb - With: Emergency Department - When: As needed - Reason: Worsening of condition Followup: kb - With: Private Physician - When: 2 - 3 days - Reason: Recheck today's complaints, Continuance of care, Re-evaluation by your physician Discharge Instructions: - Discharge Summary Sheet kb - Paronychia, [id number] kb Forms: - Medication Reconciliation Form kb - Thank You Letter kb - Antibiotic Education kb - Prescription Opioid Use kb Prescriptions: - Bactrim DS 800-160 mg Oral Tablet - take 1 tablet by ORAL route every 12 hours for 10 days; 20 tablet; Refills: 0, kb Product Selection Permitted Signatures: Emi Bazzi, UNA-C REHAB SPECIALIST-Coretta Sky RN RN iw Corrections: (The following items were deleted from the chart) 16:49 16:29 Skin: Positive for erythema, swelling, kb kb
--- NOTE | 2023-03-10 16:30 | ER ---
Nurse's Notes [facility] Name: Lucina Zuñiga Age: 52 yrs Sex: Female : 1970 Arrival Date: 03/10/2023 Time: 16:13 Bed IW5 Private MD: Diagnosis: Paronychia Presentation: 03/10 16:23 Chief complaint: Patient states: last Thursday was at [place] [facility] for foot swelling and iw pain, was diagnosed with gout, was seen by Suzi at [facility], was given prednisone and T3, now the left middle toe is oozing and is black on the knuckle. Coronavirus screen: At this time, the client does not indicate any symptoms associated with coronavirus-19. Ebola Screen: Patient negative for fever greater than or equal to 101.5 degrees Fahrenheit, and additional compatible Ebola Virus Disease symptoms Patient denies exposure to infectious person. Patient denies travel to an Ebola-affected area in the 21 days before illness onset. No symptoms or risks identified at this time. Initial Sepsis Screen: Does the patient meet any 2 criteria? No. Patient's initial sepsis screen is negative. Does the patient have a suspected source of infection? No. Patient's initial sepsis screen is negative. Risk Assessment: Do you want to hurt yourself or someone else? Patient reports no desire to harm self or others. Onset of symptoms was March 03, 2023. 16:23 Method Of Arrival: Ambulatory iw 16:23 Acuity: ABEL 3 iw Historical: - Allergies: 16:26 shrimp; iw - PMHx: 16:26 Arthritis; iw - PSHx: 16:26 section; hysterectomy; right meniscus/knee; iw - Social history:: Smoking status: . Vital Signs: 16:23 BP 132 / 85; Pulse 62; Resp 16; Temp 98.9; Pulse Ox 100% on R/A; iw ED Course: 16:18 Patient arrived in ED. rg4 16:26 Triage completed. iw 16:26 Arm band placed on. iw 16:28 Emi Bazzi FNP-C is PHCP. kb 16:28 Steffen Valdovinos MD is Attending Physician. kb 16:43 Coretta Hassan, RN is Primary Nurse. iw Administered Medications: No medications were administered Outcome: 16:30 Discharge ordered by . kb 16:43 Patient left the ED. iw Signatures: Emi Bazzi, UNA-C RATE SUPERVISOR-Coretta Sky, RN RN Nancy Verdin4
[2023-03-10 16:48] VITALS: BP 132/85; TEMP 98.9; O2SAT 100
== END 2023-03-10 16:43 | disposition home or self-care (01) ==
LOC: ER 16:13
DX: L03.032 Cellulitis of left toe (principal); Z91.013 Allergy to seafood